=== PATIENT | female | born 1980 | race Asian ===

== ENCOUNTER → 2019-09-17 | Outpatient (REF) | payer OTHER | LOC: M LAB REF 17:31 | PROVIDERS: ATTEND Obstetrics & Gynecology | DX: Z34.82 Encounter for supervision of other normal pregnancy, second trimester (principal) ==

== ENCOUNTER → 2019-09-20 | Outpatient (CLI) | payer OTHER ==
--- NOTE | 2019-09-20 16:06 | REP ---
Obstetric sonography: History: Supervision of for anatomy. Findings: Scanning through the gravid uterus demonstrates a viable single intrauterine gestation in a cephalic lie. motion is observed and heart rate is recorded at 147 beats per minute. An anterior and right lateral placenta is seen without evidence of placenta previa or abruption, grade zero. Amniotic fluid is subjectively normal. Closed cervical length is 3.1 cm, measured transabdominally. No extrauterine abnormality is observed. Umbilical cord is seen draping over the shoulders. No anomaly is seen. The following anatomic structures are identified and felt to be sonographically unremarkable: cranium, choroid plexus, cavum, cerebellum and posterior fossa, face and profile, lungs, four-chamber heart with left and right ventricular outflow tract views, diaphragm, left-sided stomach, abdominal wall cord insertion, three-vessel cord, kidneys and bladder, spine, upper and lower extremities. Biometry chart: BPD 4.7 cm = 20 weeks 0 days HC 18.0 cm = 20 weeks 3 days AC 15.1 cm = 20 weeks 2 days FL 3.5 cm = 21 weeks 0 days HL 3.2 cm = 20 weeks 3 days HC/AC ratio normal 1.19. Cephalic index normal 0.70. Estimated weight 365 grams/0 pounds 12 ounces/54th percentile for 20 weeks 3 days. Impression: Viable single intrauterine gestation at 20 weeks 3 days by today's composite sonographic criteria. PAIGE by today's sonography February 04, 2020. anatomic survey is felt to be complete. Electronically Signed by Wilman Higgins MD 09/20/2019 04:10 P
== END ==
LOC: M RAD 14:39 → EDUNIT# 15:00
PROVIDERS: ATTEND Obstetrics & Gynecology
DX: Z34.82 Encounter for supervision of other normal pregnancy, second trimester (principal); Z3A.20 20 weeks gestation of pregnancy

== ENCOUNTER → 2019-11-12 | Outpatient (CLI) | payer OTHER ==
[2019-11-12 14:24] LABS: HEMATOCRIT 32.9 % (36.0-47.0); HEMOGLOBIN 10.3 g/dl (12.0-15.5); MEAN CORPUSCULAR HEMOGLOBIN 23.4 pg (27.0-33.0); MEAN CORPUSCULAR HGB CONC 31.3 g/dl (32.0-36.5); MEAN CORPUSCULAR VOLUME 74.8 fl (80.0-96.0); PLATELET COUNT, AUTOMATED 203 10^3/uL (150-450); WHITE BLOOD COUNT 10.4 10^3/uL (4.0-10.0)
== END ==
LOC: M WUC 10:27
PROVIDERS: ATTEND Obstetrics & Gynecology
DX: Z34.82 Encounter for supervision of other normal pregnancy, second trimester (principal); Z3A.00 Weeks of gestation of pregnancy not specified

== ENCOUNTER → 2020-01-07 | Outpatient (REF) | payer OTHER | LOC: M LAB REF 16:12 | PROVIDERS: ATTEND Obstetrics & Gynecology | DX: Z34.83 Encounter for supervision of other normal pregnancy, third trimester (principal) ==

== ENCOUNTER 2020-02-04 19:24 | Inpatient (IN) | payer OTHER ==
[~2020-02-04] VITALS: Ht 154.9 cm; Wt 80.4 kg
[2020-02-04 19:42] VITALS: BP 119/89
[2020-02-04] MEDS ORDERED: IRON1TAB2 PO (19:47)
[2020-02-04] MEDS ORDERED: PRENTAB9 PO (19:47)
[2020-02-04] MEDS ORDERED: LACTATED RINGER'S 1000 ML IV STA (20:20)
[2020-02-04 20:47] LABS: HEMATOCRIT 38.4 % (36.0-47.0); HEMOGLOBIN 12.4 g/dl (12.0-15.5); MEAN CORPUSCULAR HEMOGLOBIN 24.5 pg (27.0-33.0); MEAN CORPUSCULAR HGB CONC 32.3 g/dl (32.0-36.5); MEAN CORPUSCULAR VOLUME 75.7 fl (80.0-96.0); PLATELET COUNT, AUTOMATED 175 10^3/uL (150-450); RED BLOOD COUNT 5.07 10^6/uL (4.00-5.40)
[2020-02-04] MEDS ORDERED: miSOPROStol 50 MCG 1/2 TAB (S0191) As Ordered ONE (21:10)
[2020-02-04] MEDS: miSOPROStol 50 MCG 1/2 TAB (S0191) PO SCH (21:13)
[2020-02-04] MEDS: LR 1,000 ML IV SCH (22:33)
[2020-02-04 22:35] VITALS: BP 110/84
[2020-02-05] VITALS (16 sets, daily range): BP systolic 99–135; BP diastolic 58–79
[2020-02-05] MEDS: miSOPROStol 50 MCG 1/2 TAB (S0191) PO SCH (01:16)
[2020-02-05] MEDS ORDERED: FENTANYL 2MCG/ML ROPIVACAINE 0.2% IN 0.9% NACL 100ML IVBAG As Ordered ONE (03:02)
[2020-02-05] MEDS: ePHEDrine SULFATE 25 MG/5 ML(5MG/ML) SYRINGE IV PRN ×3 (04:39→11:18)
[2020-02-05] MEDS ORDERED: EPIDURAL/PCA KEYS XX PRN (04:45)
[2020-02-05] MEDS ORDERED: LACTATED RINGER'S 1000 ML IV PRN (04:45)
[2020-02-05] MEDS ORDERED: EPIDURAL COMMENT XX SCH (04:45)
[2020-02-05] MEDS ORDERED: diphenhydrAMINE 50MG/ML VIAL (J1200) IV PRN ×2 (04:45→13:41)
[2020-02-05] MEDS ORDERED: ONDANSETRON 4MG/2ML VIAL IV PRN ×3 (04:45→14:15)
[2020-02-05] MEDS ORDERED: REFRIGERATOR IV KEYS XX PRN (04:45)
[2020-02-05] MEDS ORDERED: FENTANYL/ROPIVACAINE/NACL BAG 100 ML EPIDURAL SCH (04:45)
[2020-02-05] MEDS ORDERED: NALOXONE INJ 0.4MG/1ML VIAL (J2310 PER 1MG) IV PRN ×3 (04:45→13:41)
[2020-02-05] MEDS ORDERED: OXYTOCIN DRIP 30 UNITS in IV 1 EA IV SCH (08:00)
[2020-02-05] MEDS: LR 1,000 ML IV SCH ×2 (09:07→17:12)
[2020-02-05] MEDS ORDERED: ceFAZolin SOD 2 GM in IV 1 EA IV ONE (13:15)
[2020-02-05] MEDS ORDERED: MEASLES,MUMPS,RUBELLA VACCINE INJ (MMR-II) (90707) SC SCH (13:15)
[2020-02-05] MEDS ORDERED: RHOGAM 300 MCG (1500 IU) INJ (J2790) IM SCH (13:15)
[2020-02-05] MEDS ORDERED: BICITRA 30ML SOLN UDC PO ONE (13:15)
[2020-02-05] MEDS ORDERED: MOM 30ML SUSPENSION UDC PO PRN (13:15)
[2020-02-05] MEDS ORDERED: ONDANSETRON 4 MG TAB PO PRN (13:15)
[2020-02-05] MEDS ORDERED: NALBUPHINE HCL 10 MG/ML AMP (J2300) IV PRN (13:41)
[2020-02-05] MEDS ORDERED: fentaNYL 100 MCG/2 ML INJECTION (J3010) IV PRN (14:15)
[2020-02-05] MEDS ORDERED: oxyCODONE 5MG TAB PO PRN (14:15)
[2020-02-05 14:17] LABS: CORD GAS ABE V -3.5; CORD GAS HCO3 V 21.9 MEQ/L; CORD GAS PCO2 V 40.7 mmHg; CORD GAS PH V 7.348 UNITS; CORD GAS PO2 V 46.9 mmHg; CORD GAS SBC V 21.4 MEQ/L; CORD GAS TCO2 V 23.1 MEQ/L
[2020-02-05 14:19] LABS: CORD GAS ABE A -1.8; CORD GAS O2 SAT A 39.2 %; CORD GAS PCO2 A 55.7 mmHg; CORD GAS PH A 7.287 UNITS; CORD GAS PO2 A 20.8 mmHg; CORD GAS SBC A 21.4 MEQ/L; CORD GAS TCO2 A 27.7 MEQ/L
[2020-02-05] MEDS ORDERED: OXYTOCIN DRIP 30 UNITS in IV 1 EA IV ONE (15:30)
[2020-02-05] MEDS: METOCLOPRAMIDE INJ 10MG/2ML VIAL (J2765 PER 1) IV PRN ×2 (17:13→23:40)
[2020-02-05] MEDS: KETOROLAC 30 MG/ML 1ML VIAL IV SCH (19:51)
[2020-02-05] MEDS: DOCUSATE SODIUM 100 MG CAP PO SCH (19:51)
[2020-02-06] MEDS: LR 1,000 ML IV SCH ×2 (00:49→05:03)
[2020-02-06 01:42] VITALS: BP 109/59
[2020-02-06] MEDS: KETOROLAC 30 MG/ML 1ML VIAL IV SCH ×2 (02:20→08:59)
[2020-02-06 06:02] VITALS: BP 99/54
[2020-02-06 07:17] LABS: HEMATOCRIT 28.5 % (36.0-47.0); MEAN CORPUSCULAR HGB CONC 33.3 g/dl (32.0-36.5); PLATELET COUNT, AUTOMATED 165 10^3/uL (150-450); WHITE BLOOD COUNT 14.9 10^3/uL (4.0-10.0)
[2020-02-06 07:22] LABS: HEMOGLOBIN 9.5 g/dl (12.0-15.5)
--- NOTE | 2020-02-06 08:20 | IPNPDOC ---
Progress Note Date of Service: February 06, 2020 Day#: 1 Progress Note SUBJECT: [Sumi] is a [39]-year-old [5] now Para [4]-[0]-[1]-[4] status post uncomplicated c/s, doing well day # [1]. She has been ambulating, voiding spontaneously without issue and tolerating regular diet. Breast feeding without issue. Reports lochia is mild. Patient is ambulating well. OBJECTIVE: VITAL SIGNS: Within normal limits, afebrile. Alert and oriented times three. Breath sounds clear to auscultation. Heart rate: Regular rate and rhythm, no murmurs, rubs or gallops. Abdomen: Fundus firm at U-2. Soft, NTTP. [Minimal] lochia. ASSESSMENT:Status post uncomplicated c/s POD #1; afebrile, hemodynamically stable with no evidence of infection. PLAN: 1. Discharge to home tomorrow. 2. Tylenol and Motrin for pain. 3. Encourage breast feeding and ambulation. [facility] Vital Signs Date Time Temp Pulse Resp B/P (MAP) Pulse Ox O2 Delivery O2 Flow Rate FiO2 02/06/20 06:02 97.4 67 16 99/54 (69) 98 02/05/20 18:51 Room Air I&O- Last 24 Hours up to 6 AM 02/06/20 06:00 Intake Total 2760 ml Output Total 1950 ml Balance 810 ml Laboratory Data 24H LABS Laboratory Tests 2 02/05/20 13:38: Serology Scanned Report Hepatitis B Testing 02/05/20 14:10: Cord Arterial Blood pH 7.287, Cord Arterial Blood PCO2 55.7, Cord Arterial Blood PO2 20.8, Cord Arterial Blood HCO3 26.0, Cord Arterial Blood Total CO2 27.7, Cord Arterial Blood Base Excess -1.8, Cord Arterial Base Excess (Standard 21.4, Cord Arterial Bld Oxygen Saturation 39.2, Cord Venous Blood pH 7.348, Cord Venous Blood PCO2 40.7, Cord Venous Blood PO2 46.9, Cord Venous Blood HCO3 21.9, Cord Venous Blood Total CO2 23.1, Cord Venous Base Excess (Actual) -3.5, Cord Venous Base Excess (Standard) 21.4, Cord Venous Blood Oxygen Saturation 89.0 02/06/20 06:29: Nucleated Red Blood Cells % (auto) 0.0 CBC/BMP Laboratory Tests 02/06/20 06:29 Sven Alva DO February 06, 2020 08:20
[2020-02-06] MEDS: PRENATAL VITAMINS CHEWABLE TABLET PO SCH (08:59)
[2020-02-06] MEDS: DOCUSATE SODIUM 100 MG CAP PO SCH ×2 (08:59→20:01)
[2020-02-06 10:00] VITALS: BP 99/54
[2020-02-06 14:00] VITALS: BP 112/68
[2020-02-06] MEDS: IBUPROFEN 800 MG TAB PO SCH ×2 (16:56→23:07)
[2020-02-06 18:00] VITALS: BP 110/62
[2020-02-06 22:00] VITALS: BP 122/72
[2020-02-07 02:00] VITALS: BP 99/57
[2020-02-07 06:00] VITALS: BP 108/68
[2020-02-07] MEDS: DOCUSATE SODIUM 100 MG CAP PO SCH (07:47)
[2020-02-07] MEDS: PRENATAL VITAMINS CHEWABLE TABLET PO SCH (07:48)
[2020-02-07] MEDS: IBUPROFEN 800 MG TAB PO SCH (07:48)
--- NOTE | 2020-02-07 08:56 | OBDS ---
[facility] Obstetrical Discharge Sum. Obstetrical Discharge Summary Date: February 07, 2020 : 5 Term: 4 Pre-term: 0 Abortions: 1 Livin VDRL: Non-Reactive Rh: Positive Rubella: Immune Labor Pt was admitted for induction at 40 plus weeks . Had two cytotec followed by pitocin and an epidural. Pt had Non-reassuring heart rate tracing remote from delivery. She underwent a primary c/s. Post op coarse uneventfull Infant Sex: Male Anesthesia: Regional Anesthesia A/P, Post Course List any complications Admission diagnosis:Post EDC. Non reassuring heart rate tracing remote from delivery Discharge diagnosis: Same Condition at Discharge: [stable] Discharge Instructions: [No heavy lifting > 15 lbs. Call for temp greater than 101.] Activity: [As tolerated ] Diet: [Regular] Medications: [See list] Follow-up: [2 weeks] Other: Sven Alva DO February 07, 2020 08:56
[2020-02-07] MEDS ORDERED: IBUP80TA PO (08:58)
== END 2020-02-07 14:00 | disposition home or self-care (01) | DRG 773 ==
LOC: M LDI 19:24 → M OBS 02-05 16:34
PROVIDERS: ADMIT Obstetrics & Gynecology; ATTEND Obstetrics & Gynecology
PROC: 3E033VJ Introduction of Other Hormone into Peripheral Vein, Percutaneous Approach (ICD-10-PCS; 2020-02-04)
PROC: 3E0DXGC Introduction of Other Therapeutic Substance into Mouth and Pharynx, External Approach (ICD-10-PCS; 2020-02-04)
PROC: 10D00Z1 Extraction of Products of Conception, Low, Open Approach (ICD-10-PCS; principal; 2020-02-05 13:00)
DX: O48.0 Post-term pregnancy (principal); Z37.0 Single live birth; Z3A.40 40 weeks gestation of pregnancy; O09.523 Supervision of elderly multigravida, third trimester; O76 Abnormality in fetal heart rate and rhythm complicating labor and delivery

== ENCOUNTER 2020-06-07 13:25 | Emergency (ER) | payer OTHER ==
[~2020-06-07] VITALS: Ht 157.5 cm; Wt 75.1 kg
[~2020-06-07 13:25] MED LIST: IBUP80TA PO; IRON1TAB2 PO; PRENTAB9 PO
[2020-06-07] MEDS ORDERED: FAMOTIDINE 20 MG TAB PO ONE (14:45)
[2020-06-07] MEDS ORDERED: predniSONE 20 MG TAB PO ONE (14:45)
[2020-06-07] MEDS ORDERED: diphenhydrAMINE 50MG CAP PO ONE (14:45)
[2020-06-07] MEDS ORDERED: PRED20TA PO (14:45)
[2020-06-07] MEDS ORDERED: CLAR10CA3 PO (14:45)
[2020-06-07 15:00] VITALS: BP 120/70
== END 2020-06-07 15:03 | disposition home or self-care (01) ==
LOC: M ED 13:25
DX: L50.9 Urticaria, unspecified (principal)

== ENCOUNTER → 2020-06-11 | Outpatient (CLI) | payer OTHER ==
[~2020-06-11] MED LIST changes: +CLAR10CA3 PO; +PRED20TA PO
[2020-06-11 16:30] LABS: BASO % 0.3 % (0.0-1.0); EOS % 0.3 % (0.0-3.0); HEMATOCRIT 39.2 % (36.0-47.0); HEMOGLOBIN 12.2 g/dl (12.0-15.5); LYMPH # 1.8 10^3/uL (1.5-5.0); LYMPH % 18.7 % (24.0-44.0); MEAN CORPUSCULAR HEMOGLOBIN 23.9 pg (27.0-33.0); MEAN CORPUSCULAR HGB CONC 31.1 g/dl (32.0-36.5); MEAN CORPUSCULAR VOLUME 76.9 fl (80.0-96.0); MONO # 0.3 10^3/uL (0.0-0.8); MONO % 2.9 % (0.0-5.0); NEUTROPHILS # 7.5 10^3/uL (1.5-8.5); PLATELET COUNT, AUTOMATED 300 10^3/uL (150-450); WHITE BLOOD COUNT 9.7 10^3/uL (4.0-10.0)
[2020-06-11 16:45] LABS: ALBUMIN 3.3 GM/DL (3.2-5.2); ALT/SGPT 30 U/L (12-78); BILIRUBIN,TOTAL 0.2 MG/DL (0.2-1.0); BLOOD UREA NITROGEN 11 MG/DL (7-18); CALCIUM LEVEL 8.4 MG/DL (8.5-10.1); CARBON DIOXIDE LEVEL 29 MEQ/L (21-32); CHLORIDE LEVEL 104 MEQ/L (98-107); CHOLESTEROL LEVEL 180 MG/DL (<200); CHOLESTEROL RISK RATIO 2.857 (<5); CREATININE FOR GFR 0.69 MG/DL (0.55-1.30); FREE T4 1.28 NG/DL (0.76-1.46); GLOMERULAR FILTRATION RATE > 60.0 (>58); GLUCOSE, FASTING 122 MG/DL (70-100); HDL CHOLESTEROL 63 MG/DL (>40); LDL CHOLESTEROL 94 MG/DL (<100); NON-HDL-C 117 MG/DL; SODIUM LEVEL 137 MEQ/L (136-145); TOTAL PROTEIN 7.3 GM/DL (6.4-8.2); TRIGLYCERIDES LEVEL 116 MG/DL (<150)
== END ==
LOC: M LRY 11:41
PROVIDERS: ATTEND Physician Assistant
DX: L50.1 Idiopathic urticaria (principal); Z13.220 Encounter for screening for lipoid disorders

== ENCOUNTER → 2021-02-18 | Outpatient (CLI) | payer OTHER ==
[2021-02-18 16:55] LABS: BASO # 0.1 10^3/uL (0.0-0.2); BASO % 0.5 % (0.0-1.0); EOS # 0.5 10^3/uL (0.0-0.5); EOS % 4.6 % (0.0-3.0); HEMATOCRIT 38.3 % (36.0-47.0); HEMOGLOBIN 11.2 g/dl (12.0-15.5); LYMPH # 3.3 10^3/uL (1.5-5.0); LYMPH % 32.1 % (24.0-44.0); MEAN CORPUSCULAR HEMOGLOBIN 20.9 pg (27.0-33.0); MEAN CORPUSCULAR HGB CONC 29.2 g/dl (32.0-36.5); MEAN CORPUSCULAR VOLUME 71.3 fl (80.0-96.0); MONO # 0.6 10^3/uL (0.0-0.8); MONO % 5.9 % (2.0-8.0); NEUTROPHILS # 5.8 10^3/uL (1.5-8.5); NEUTROPHILS % 56.6 % (36.0-66.0); PLATELET COUNT, AUTOMATED 287 10^3/uL (150-450); RED BLOOD COUNT 5.37 10^6/uL (4.00-5.40); WHITE BLOOD COUNT 10.3 10^3/uL (4.0-10.0)
[2021-02-18 17:29] LABS: ALBUMIN 3.8 GM/DL (3.2-5.2); ALT/SGPT 28 U/L (12-78); BILIRUBIN,TOTAL 0.4 MG/DL (0.2-1.0); BLOOD UREA NITROGEN 14 MG/DL (7-18); CALCIUM LEVEL 8.7 MG/DL (8.5-10.1); CARBON DIOXIDE LEVEL 25 MEQ/L (21-32); CHLORIDE LEVEL 105 MEQ/L (98-107); CHOLESTEROL LEVEL 137 MG/DL (<200); CHOLESTEROL RISK RATIO 2.854 (<5); CREATININE FOR GFR 0.52 MG/DL (0.55-1.30); FREE T4 1.09 NG/DL (0.76-1.46); GLOMERULAR FILTRATION RATE > 60.0 (>58); GLUCOSE, FASTING 82 MG/DL (70-100); HDL CHOLESTEROL 48 MG/DL (>40); LDL CHOLESTEROL 73 MG/DL (<100); NON-HDL-C 89 MG/DL; POTASSIUM SERUM 4.1 MEQ/L (3.5-5.1); SODIUM LEVEL 137 MEQ/L (136-145); TOTAL PROTEIN 7.8 GM/DL (6.4-8.2); TRIGLYCERIDES LEVEL 80 MG/DL (<150)
[2021-02-18 17:31] LABS: TOTAL 25(OH) VITAMIN D 19.4 NG/ML (30.0-100.0)
== END ==
LOC: M WUC 12:01
PROVIDERS: ATTEND Family Medicine
DX: Z13.29 Encounter for screening for other suspected endocrine disorder (principal); Z13.0 Encounter for screening for diseases of the blood and blood-forming organs and certain disorders involving the immune mechanism; Z13.220 Encounter for screening for lipoid disorders; E55.9 Vitamin D deficiency, unspecified

== ENCOUNTER → 2021-12-16 | Outpatient (CLI) | payer OTHER | LOC: M WHC 10:52 | PROVIDERS: ATTEND Advanced Practice Midwife | DX: Z12.31 Encounter for screening mammogram for malignant neoplasm of breast (principal) ==